=== PATIENT | male | born 2000 | race Caucasian/White ===

== ENCOUNTER → 2024-07-13 | Outpatient (CLI) | payer BC ==
--- NOTE | 2024-07-13 16:24 | US ---
EXAMINATION TYPE: US scrotum with doppler. DATE OF EXAM: 07/13/2024 COMPARISON: NONE CLINICAL INDICATION: Male, 23 years old with history of N50.811 RIGHT TESTICULAR PAIN; TECHNIQUE: Grayscale, color Doppler and spectral Doppler imaging of the scrotum. FINDINGS: EXAM MEASUREMENTS: TESTICLES: Right Testicle: 4.6 x 2.4 x 4.5cm Left Testicle: 4.8 x 2.1 x 3.0cm EPIDIDYMIS HEAD: Right Epididymis: 1.1 x 0.8 x 0.5 cm Left Epididymis: 1.5 x 1.0 x 0.8 cm Anechoic area seen: 0.5 x 0.6 x 0.5 cm Doppler performed to assess for testicular vascularity; good bilateral color flow and spectral wavefo becca are seen. There is no evidence of testicular torsion. Presence of hydroceles: no Presence of varicoceles: yes, left Appendix of the right testes seen no color Doppler flow present. IMPRESSION: 1. The appendix of testes was identified without color Doppler flow for correlate for towards portio n of the testicular appendage. Otherwise: No evidence for acute process. 2. No evidence for intratesticular mass. 3. Appropriate arterial and venous spectral waveforms to the testes. [facility], , 07/13/2024 4:22 PM
== END | disposition home or self-care (01) ==
LOC: RADUSWWP 15:26
PROVIDERS: ATTEND Family Medicine
DX: N50.811 Right testicular pain (principal)
CPT/HCPCS: 76870; 93975